=== PATIENT | male | born 1970 | race Caucasian/White ===

== ENCOUNTER → 2020-10-13 12:52 | Outpatient (CLI) | payer OTHER, SELFPAY ==
--- NOTE | ~2020-10-13 | MR_ITS ---
EXAMINATION: MR brain/brain stem wo con DATE: 10/13/2020 14:00 INDICATION: Migraine headache. TECHNIQUE: Magnetic resonance imaging (MRI) of the brain and brainstem was performed without intraven ous contrast. Sequences included sagittal and axial T1-weighted FSE, axial diffusion-weighted FS EPI, axial T2*-weighted GRE, axial T2-weighted FLAIR Propeller, and axial T2-weighted Propeller. Apparent diffusion coefficient (ADC) maps were created. COMPARISON: None. FINDINGS: There is no intracranial hemorrhage, acute infarction, or abnormal intracranial mass lesion . The ventricles are normal in size. The mastoid air cells are normal. There is mild mucosal thickeni ng in the ethmoid sinuses. The orbits are normal. IMPRESSION: 1. Normal brain. Reviewed, dictated and finalized at location A. IMPRESSION: 1. Normal brain.
== END ==
PROVIDERS: Visit Provider Physician Assistant
DX: G43.711 Chronic migraine without aura, intractable, with status migrainosus (principal)
CPT/HCPCS: 70551

== ENCOUNTER 2024-04-07 07:34 | Outpatient (CLI) | payer OTHER, SELFPAY ==
--- NOTE | ~2024-04-07 | US_ITS ---
EXAMINATION: US abdomen limited DATE: 04/07/2024 08:39 INDICATION: Abdominal pain. Hernia. TECHNIQUE: Multiple grayscale and Doppler ultrasound images of the abdomen were obtained. COMPARISON: None FINDINGS: There is a periumbilical hernia containing fat. IMPRESSION: 1. Periumbilical hernia containing fat. Reviewed, dictated and finalized at location A.
== END 2024-04-07 07:35 | disposition home or self-care (01) ==
PROVIDERS: PCP Nurse Practitioner Family; Visit Provider Nurse Practitioner Family
DX: K42.9 Umbilical hernia without obstruction or gangrene (principal); R14.0 Abdominal distension (gaseous)
CPT/HCPCS: 76705